=== PATIENT | male | born 1955 | race Caucasian/White ===

== ENCOUNTER → 2020-02-12 | Day surgery (SDC) | payer MEDICARE ==
[2020-02-08 11:40] LABS: BASOPHILS % 0.5 % (0.0-1.0); EOSINOPHILS % 0.6 % (0.0-6.0); HEMATOCRIT 41.6 % (38.2-49.6); HEMOGLOBIN 13.2 g/dL (14.0-18.0); LYMPHOCYTES # (AUTO) 1.4 (1.0-3.2); LYMPHOCYTES % 22.7 % (18.0-39.1); MEAN CORPUSCULAR HEMOGLOBIN 28.2 pg (28-32); MEAN CORPUSCULAR HGB CONC 31.7 g/dL (31-35); MEAN CORPUSCULAR VOLUME 88.9 fL (81-99); MONOCYTES # (AUTO) 0.6 (0.2-0.8); MONOCYTES % 9.6 % (4.4-11.3); NEUTROPHILS # (AUTO) 4.2 (2.1-6.9); NEUTROPHILS % 66.3 % (38.7-80.0); PLATELET COUNT 164 x10e3/uL (140-360); RED BLOOD COUNT 4.68 x10e6/uL (4.3-5.7); RED CELL DISTRIBUTION WIDTH 14.5 % (11.7-14.4)
[2020-02-08 12:01] LABS: ALBUMIN 4.6 g/dL (3.5-5.0); ALBUMIN/GLOBULIN RATIO 1.6 (0.8-2.0); ANION GAP 10.3 mmol/L (8-16); CALCIUM 9.4 mg/dL (8.4-10.2); CREATININE, SERUM 1.33 mg/dL (0.72-1.25); POTASSIUM 5.3 mmol/L (3.5-5.1)
[2020-02-12] VITALS (18 sets, daily range): BP systolic 126–146; BP diastolic 74–92
[~2020-02-12] VITALS: Ht 185.4 cm; Wt 90.3 kg
[~2020-02-12] MED LIST: ALPRAZOLAM 0.5 MG TAB ONE; AMITIZA24 MCG PO; AMLODIPINE BESY10 MG PO; ASPIR 8181 MG PO; ASPIRIN 325 MG TAB ONE; COQ-10100 MG; D3 DOTS2000 UNIT PO; DIPHENHYDRAMINE HCL 25 MG CAP ONE; FENTANYL CITRATE/PF 100MCG/2 ML INJ ONE; FISH OIL 1,0001 EAC1 PO; FISH OIL 1,2001 EAC1 PO; FISH OIL 1,4001 EACH PO; GLUCOSAMINE &1 EAC1 PO; HEPARIN SOD (PORCINE) 1000 UNIT/ML 30ML ONE; HEPARIN SOD/SOD CHLORIDE 2,000 ML ONE; IOPAMIDOL 370 MG/ML 200 ML INFUS..BTL INJ ONE; K2 PLUS D3 TAB1 EACH PO; LIDOCAINE HCL 2% LOCAL 20 ML VIAL ONE; MIDAZOLAM HCL 2 MG/2 ML VIAL ONE; MULTIVITAMINS1 EAC7 PO; OSTEO BI-FLEX1 EAC2 PO; PRASUGREL 10 MG TAB ONE; SODIUM CHLORIDE 0.9% 1000ML 1,000 ML ONE; TESTOPEL75 MG; TESTOSTERO200 MG/11 SC; VERAPAMIL HCL 2.5 MG/ML 2 ML VIAL ONE; VITAMIN C500 M1 PO; VITAMIN D3 PO
--- NOTE | 2020-02-12 11:30 | NUR ---
pt in ACU 10 , prepped for procedure. Alert oriented and appropriate, PERRLA, respirations even and unlabored to room air. Pulses x4 extremities equal and palpable . Cap fill brisk < 3 sec. + modified barbeau and neurovascular function of right wrist/hand. Right wrist and bilateral groin prepped for procedure. skin intact. Skin warm and dry integrity appears intact in general. IV 20g x4 attempt to left forearm and presents healthy w/o s/s of infiltration or complaint. Abdomen soft and supple. pt offered toileting, denies need to urinate or defecate. Personal affects with patient. Family at bedside pre and post procedure . Pt verbalizes understanding of POC. Educated inventory control specialist light use. bed low and locked, side rails up x2 and call light at side. Awaiting for physician arrival/procedure time. xanax 0.5mg and benadryl 50mg po given as pre-op. pt using provided/ personal mask for COVID-19 mitigation. -cgf
--- NOTE | 2020-02-12 18:44 | Operative Report ---
DATE OF PROCEDURE: 02/12/2020 SURGEON: Sebastián Mckeon MD INDICATION FOR PROCEDURE: Chest pain, abnormal stress test. PREPROCEDURE ASSESSMENT: The risks, benefits, and alternatives of treatment explained to the patient prior to procedure. The patient deemed to be an appropriate candidate for moderate sedation. Informed consent was obtained and documented in the medical record. MEDICATIONS: Please see nursing notes for medications administered throughout the procedure. PROCEDURES PERFORMED: 1. Coronary angiography, right radial approach. 2. Left heart catheterization. 3. Percutaneous coronary intervention to the chronic total occlusion of large diagonal one with drug-eluting stent x1. PROCEDURE IN DETAIL: The patient was brought to the cardiac catheterization laboratory in a fasting state. Right wrist was prepped and draped in a sterile fashion. A 6-Amharic Slender sheath was inserted in the right radial artery using modified Seldinger technique. Coronary angiography was performed using 5-Amharic Ashia radial catheter to engage both the left and right coronary arteries. Left heart catheterization was performed using catheter. All catheters were removed over a wire. Angiography demonstrated chronic total occlusion of large diagonal one. We decided to proceed with PCI of the diagonal one MACHINERY RIGGER, an XB 3.0 guide catheter was used which provided adequate support. The lesion was wired using a Runthrough wire. Predilation was performed using a 2.0 x 8 mm balloon. Stenting was performed using 2.5 x 24 mm stent. This resulted in excellent angiographic result without any residual dissection, thrombus, or spasm. There were no immediate complications. All catheters were removed over the wire. Access site was closed with TR band device. GRAFTS AND IMPLANTS: Drug eluting sent x1. ESTIMATED BLOOD LOSS: 10 mL. COMPLICATIONS: None. SIGNIFICANT FINDINGS: Left main, large vessel, no significant CAD. LAD, large vessel goes to the apex, very large diagonal one branch. There is MACHINERY RIGGER in the midportion of the diagonal one, short-segment with collaterals both from LAD as well as posterolateral branches. Left circumflex, nondominant vessel, one significant OM branch, 10-20% plaquing. RCA, very large dominant RCA, 35% stenosis, not acute plaquing . FINAL RECOMMENDATIONS: 1. Continue aspirin 81 mg daily and Effient 10 mg daily for at least 1 year followed by aspirin 81 mg daily for life. 2. Follow up in office with Dr. Rafael Bragg in one to two week post PCI. 3. Continue optimal therapy and risk factor control. MD MATTHEW Gastelum/IRIS /[id number]
--- NOTE | 2020-02-12 20:00 | NUR ---
IV to left antecubital removed and dressing placed per unit protocol. Dressing to left antecubital is clean,dry, and intact at this time. Dressing to right wrist is clean,dry, and intact at this time. 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 Patient discharged with belongings. No distress noted at time of discharge.
== END | disposition home or self-care (01) ==
LOC: CATH LAB 11:14
PROVIDERS: ATTEND Internal Medicine Interventional Cardiology
DX: I25.118 Atherosclerotic heart disease of native coronary artery with other forms of angina pectoris (principal); R94.39 Abnormal result of other cardiovascular function study; I25.82 Chronic total occlusion of coronary artery; Z01.812 Encounter for preprocedural laboratory examination; Z11.59 Encounter for screening for other viral diseases; Z79.82 Long term (current) use of aspirin; Z82.49 Family history of ischemic heart disease and other diseases of the circulatory system
CPT/HCPCS: 93454; C9607; 36415; 80053; 85025; 92928; 99152; 99153; C1725; C1769; C1874; C1887; J1644; J2001; J2250; J3010; J7030; Q9967